=== PATIENT | female | born 1945 | race Caucasian/White ===

== ENCOUNTER 2019-11-07 08:06 | Outpatient (CLI) | payer MEDICARE, SELFPAY ==
--- NOTE | 2019-11-20 06:21 | SLEEP_ITS ---
DATE OF STUDY: 11/07/2019 ORDERING PHYSICIAN: Santo Patel M.D. REASON FOR THIS STUDY: Prior basic sleep study on September 25, 2019 with moderate JHON, with an AHI of 16, worse in supine sleep. HISTORY: This patient is a 74-year-old female, 59 inches tall, weighing 184 pounds with a body mass index of 37.2. On a prior study, September 25, 2019, her apnea-hypopnea index was 16, severe in non-supine REM with an index of 51.1 and a minimum saturation of 69%. She did have significant central apneas and therefore presents for a CPAP titration. MEDICAL COMORBIDITIES: Gastroesophageal reflux disease, hypertension, diabetes mellitus, nasal allergies, anemia, arthritis, chronic kidney disease stage 4, hearing loss, lumbar spine spondylosis. MEDICATIONS: 1. Tresiba 30 units insulin daily. 2. Omeprazole 20 mg a day. 3. Loratadine 10 mg a day. 4. Amlodipine 5 mg a day. 5. Carvedilol 12.5 mg b.i.d. 6. Hydralazine 25 mg t.i.d. 7. Folic acid with vitamins B and C complex daily. 8. Vascepa 1 g daily. HABITS: Tobacco, quit 2004. Caffeine, 2 cups a day. No alcohol or recreational drugs. DESCRIPTION OF THE STUDY: On the [place] Sleepiness Scale, her prior score was 5. This was conducted as an in-lab attended study using the [employer] multiple channel system including EOG, EEG, submental EMG, EKG, nasal and oral airflow using thermistors and nasal pressure sensors, chest and abdominal belts, body position data and pulse oximetry. This study was scored using CMS guidelines. Duration of the study was 490.3 minutes. Sleep time was 315.3 minutes. Sleep efficiency 64.3%. Sleep latency 20.9 minutes. REM latency 142.5 minutes. There were 19 awakenings, 32.8% of the study was awake after sleep onset, 154 minutes. Sleep architecture showed 4.2% stage 1 sleep, 48.9% stage 2 sleep, no stage 3 sleep and 14.2% stage REM. She spent 12.1% of the study supine. The remainder was non-supine. She had 2 REM cycles during the study with a long episode of wakefulness in the last third of the night. The apnea-hypopnea index was 1.9 due to 2 obstructive hypopneas in non-supine REM, 1 obstructive hypopnea in supine non-REM and 6 obstructive hypopneas in non-supine non-REM. The supine index was 1.2. Non-supine index 2.1. Lowest desaturation was 87%. 0.1 minute was spent below 88%. Mean saturation was 92%. There were 11 desaturations of 4% or greater for an index of 1.3. Mean saturation was 92%. EKG: Sinus rhythm mean heart rate 72. EEG was unremarkable. During this titration, the patient started with a nasal pillow, but her head was very petite for the head gear and a good fit was not maintained. She switched to a small WISP nasal mask. CPAP was started at 5 cm and titrated up to 10 cm with 3 of EPR using a small WISP nasal mask. She did have 34-1/2 minutes of REM, 1 hour 12 minutes of non-REM, an AHI of 0.6 and a minimum saturation of 89% at that setting. However, sleep efficiency was low at 10.3%. IMPRESSION: 1. This CPAP titration shows an optimal pressure of 10 cm of water pressure using a small WISP nasal mask heated humidifier and a pressure of 10 with 3 of EPR. Although the sleep efficiency was not very high, 10 cm water pressure did eliminate events. At this pressure, the patient had lateral REM. No supine REM was seen on this study. She had elimination of limb movements on this study. On the initial study, she had significant myoclonus with an isolated limb movement index of 18.4, now is 0. She should use this with all episodes of sleep including naps; fortunately central events were not noted on this study and they were present on the initial study. 2. Elevated body mass index 32.5. The patient should be encouraged to strive to achieve ideal body mass index. 3. Other medical
== END 2019-11-07 08:07 | disposition home or self-care (01) ==
LOC: ANHCSM 08:07
PROVIDERS: PCP Internal Medicine; Visit Provider Internal Medicine
DX: G47.33 Obstructive sleep apnea (adult) (pediatric) (principal)
CPT/HCPCS: 95811

== ENCOUNTER 2021-02-13 07:42 | Emergency (ER) | payer MEDICARE, SELFPAY ==
[2021-02-13] VITALS (24 sets, daily range): BP systolic 142–191; BP diastolic 57–94; PULSE 65–84; RESP 8–20; TEMP 36.6; O2SAT 94–99
--- NOTE | ~2021-02-13 | CT_ITS ---
EXAMINATION: CT lumbar spine wo con DATE: 02/13/2021 08:57 INDICATION: Chronic back pain. TECHNIQUE: Computed tomography (CT) of the lumbar spine was performed without intravenous contrast. A utomated exposure control and iterative reconstruction technique were employed. The dose-length produ ct was 1077.22 mGy-cm. COMPARISON: CT lumbar spine 04/07/2019 FINDINGS: There is chronic mild atrophy of left kidney. The bladder is distended. There is 4 mm anter olisthesis of L4 on L5. Vertebral body heights are normal. There is moderately decreased disc height at L3-L4 and L5-S1 and mildly decreased disc height at L4-L5 with endplate remodeling. There is Baast rup disease at L2-L3 and L3-L4. The following disc levels are specifically discussed: L1-L2: The disc does not extend beyond the endplate margin. There is moderate right and severe left f acet joint osteoarthritis. There is no neural foraminal stenosis. There is no central canal stenosis. L2-L3: The disc does not extend beyond the endplate margin. There is severe bilateral facet joint ost eoarthritis. There is no neural foraminal stenosis. There is no central canal stenosis. L3-L4: The disc is bulging. There is severe bilateral facet joint osteoarthritis. There is mild bilat eral neural foraminal stenosis. There is mild central canal stenosis. L4-L5: The disc is bulging. There is severe bilateral facet joint osteoarthritis. There is moderate b ilateral neural foraminal stenosis. There is severe central canal stenosis. L5-S1: The disc is bulging. There is severe bilateral facet joint osteoarthritis. There is severe jorge ateral neural foraminal stenosis. There is severe central canal stenosis. IMPRESSION: 1. Severe lumbar spondylosis, stable from 04/07/2019. Reviewed, dictated and finalized at location A.
--- NOTE | 2021-02-13 08:34 | ED.BACK ---
HPI - Back Pain/Injury General Chief Complaint: Back Pain/Injury Stated Complaint: back pain/htn Time Seen by Provider: 02/13/21 08:16 Source: patient, EMS and RN notes reviewed Mode of arrival: EMS Limitations: no limitations History of Present Illness HPI Narrative: Patient 75 years old white female brought to the emergency room by ambulance from home complaining of mid lower back pain started 3 weeks ago, gradually getting worse, intermittent, positional, better when she sit in upright position, history of chronic back pain for years secondary to bulging disks. Patient on Tylenol as needed. Patient also complaining of tingling numbness from head to toes. History of diabetic peripheral neuropathy. Patient denies any focal weakness. patient denies bowel dysfunction, bladder dysfunction, altered sensation, focal weakness, or saddle numbness,. Patient also denies any fever, chills, nausea, vomiting, diarrhea, constipation, urinary symptoms. History of chronic renal failure, diabetes, hypertension, chronic back pain. Related Data Home Medications Medication Instructions Recorded Confirmed cranberry extract 500 mg capsule 500 mg PO TID 09/23/20 02/13/21 sennosides 8.6 mg tablet 8.6 mg PO DAILY 09/23/20 02/13/21 vitamin B complex 1 tablet PO DAILY 09/23/20 02/13/21 Allergies Allergy/AdvReac Type Severity Reaction Status Date / Time Tetracyclines Allergy Mild hives Verified 02/13/21 07:47 ciprofloxacin Allergy Unknown Unknown Verified 02/13/21 07:47 Penicillins Allergy Unknown Rash Verified 02/13/21 07:47 shellfish derived Allergy Unknown Unknown Verified 02/13/21 07:47 Sulfa (Sulfonamide Allergy Unknown Nausea And Verified 02/13/21 07:47 Antibiotics) Vomiting tetracycline Allergy Unknown Rash Verified 02/13/21 07:47 Review of Systems Review of Systems: Narrative: CONSTITUTIONAL: Denies fever, chills, or sweats. EYES: Denies visual changes, redness, or discharge. ENT: Denies rhinorrhea, congestion, sore throat, or otalgia. CARDIOVASCULAR: Denies chest pain, palpitations, or edema. RESPIRATORY: Denies cough or dyspnea. GASTROINTESTINAL: Denies abdominal pain, nausea, vomiting, or diarrhea. GENITOURINARY: Denies dysuria or hematuria. SKIN: Denies rash or itching. MUSCULOSKELETAL: Back pain NEUROLOGIC: Denies headache, numbness, or weakness. PSYCHIATRIC: Denies anxiety or depression. 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 JHON on CPAP Proteinuria Vitamin B1 deficiency Vitamin B12 deficiency Family History Family History Father Diabetes mellitus Mother Diabetes mellitus Depression Hypertension Asthma Family history of cardiovascular disease Family history of malignant neoplasm Family history of congestive heart failure Sibling Diabetes mellitus Family history of malignant neoplasm Family history of hearing loss Social History Social History Smoking status: Never smoker Exam Narrative: Exam Narrative: General appearance: Well-developed, well-nourished Skin: Normal color Head: Normocephalic, nontraumatic Eyes: Clear conjunctiva ENT: Oropharynx normal, ears normal, nose normal Neck: Supple, nontender Chest and respiratory: Airway patent, no respiratory distress, no accessory muscle use Heart: Regular rate/rhythm Abdomen: Soft, nontender, no organomegaly, quiet bowel sounds Vascular: Normal peripheral pulses, normal capillary refill. Musculoskeletal: Normal range of motion, nontender back Neurologic:
[2021-02-13] MEDS: HYDROmorphone HCL INJ (*CRX) 1 MG/ML SYR 0.5 MG IV PUSH (08:40)
[2021-02-13] MEDS: diazePAM INJ (*CRX) 10 MG/2 ML SYRINGE 5 MG IV PUSH (08:41)
[2021-02-13] MEDS: ONDANSETRON INJ 4 MG/2 ML VIAL IV PUSH (08:42)
[2021-02-13 08:49] LABS: Basophils Absolute Auto 0.1 K/mm3 (0.0-0.1); Basophils Percent Auto 0.5 % (0.2-1.2); Eosinophils Absolute Auto 0.2 K/mm3 (0-0.3); Hematocrit 29.9 % (37.0-47.0); Hemoglobin 9.2 g/dL (12.0-15.0); Immature Granulocyte Absolute 0.04 K/mm3 (0.00-0.031); Immature Granulocyte Percent A 0.4 % (0-0.5); Lymphocytes Absolute Auto 1.34 K/mm3 (0.9-3.2); Lymphocytes Percent Auto 12.8 % (18.3-44.2); Mean Corpuscular HGB Conc 30.8 g/dl (32-36); Mean Corpuscular Hemoglobin 25.7 pg (26-34); Mean Corpuscular Volume 83.5 fl (80-100); Mean Platelet Volume 9.1 fl (7.4-10.4); Monocytes Absolute Auto 0.6 K/mm3 (0.1-0.6); Monocytes Percent Auto 5.5 % (2.6-8.5); Neutrophils Absolute Auto 8.2 K/mm3 (1.3-6.7); Neutrophils Percent Auto 78.8 % (45.5-73.1); Platelet Count Result 281 k/mm3 (150-375); Red Blood Count 3.58 M/mm3 (4.2-5.4); Red Cell Distribution Width 16.3 % (11.5-14.5); White Blood Count 10.5 K/mm3 (4.5-10.0)
[2021-02-13 09:00] LABS: Alanine Aminotransferase 13 U/L (4-35); Albumin Level 4.1 g/dL (3.5-5.1); Alkaline Phosphatase 86 U/L (38-126); Anion Gap 10 mmol/L (8-16); Aspartate Amino Transferase 25 U/L (14-36); Bilirubin,Total 0.3 mg/dL (0.2-1.3); Blood Urea Nitrogen 56 mg/dL (7-17); Calcium 9.5 mg/dL (8.4-10.2); Carbon Dioxide 21 mmol/L (22-30); Chloride 112 mmol/L (98-107); Estimated Glomerular Filt Rate 11; Glucose 116 mg/dL (65-105); Potassium 4.4 mmol/L (3.4-5.0); Sodium 143 mmol/L (137-145)
[2021-02-13 09:03] LABS: CRP 0.7 mg/dL (<1.0)
[2021-02-13 09:29] LABS: Erythrocyte Sedimentation Rate 28 mm/hr (0-20)
== END 2021-02-13 12:21 | disposition home or self-care (01) ==
PROVIDERS: Emergency Provider Emergency Medicine; PCP Internal Medicine
DX: M54.5 Low back pain (principal); E11.42 Type 2 diabetes mellitus with diabetic polyneuropathy; E11.22 Type 2 diabetes mellitus with diabetic chronic kidney disease; I12.9 Hypertensive chronic kidney disease with stage 1 through stage 4 chronic kidney disease, or unspecified chronic kidney disease; N18.4 Chronic kidney disease, stage 4 (severe); Z79.4 Long term (current) use of insulin; G47.33 Obstructive sleep apnea (adult) (pediatric); E51.9 Thiamine deficiency, unspecified; E53.8 Deficiency of other specified B group vitamins; M47.816 Spondylosis without myelopathy or radiculopathy, lumbar region
CPT/HCPCS: 36415; 72131; 80053; 85025; 85652; 86140; 96374; 96375; 99284; J1170; J2405; J3360

== ENCOUNTER 2021-03-08 09:16 | Outpatient (NON) | payer MEDICARE, SELFPAY ==
[2021-03-08 09:58] LABS: Anion Gap 11 mmol/L (8-16); Blood Urea Nitrogen 42 mg/dL (7-17); Calcium 9.7 mg/dL (8.4-10.2); Carbon Dioxide 21 mmol/L (22-30); Chloride 110 mmol/L (98-107); Cholesterol 160 mg/dL (0-200); Estimated Glomerular Filt Rate 10; Glucose 63 mg/dL (65-105); HDL Direct 50 mg/dL; LDL Cholesterol Direct 63 mg/dL; Sodium 142 mmol/L (137-145); Triglycerides 120 mg/dL (<150)
[2021-03-08 10:12] LABS: Hemoglobin A1C 5.6 % (<5.7)
== END 2021-03-08 09:17 | disposition home or self-care (01) ==
PROVIDERS: PCP Internal Medicine; Visit Provider Internal Medicine
DX: E11.9 Type 2 diabetes mellitus without complications (principal); I10 Essential (primary) hypertension; Z79.899 Other long term (current) drug therapy
CPT/HCPCS: 80048; 80061; 83036

== ENCOUNTER 2021-05-11 04:17 | Emergency (ER) | payer MEDICARE, SELFPAY ==
--- NOTE | ~2021-05-11 | XR_ITS ---
EXAMINATION: XR ankle LT min 3V EXAM DATE: 05/11/2021 05:16 INDICATION: Fell today, left ankle pain. TECHNIQUE: Left ankle frontal, lateral and oblique projections obtained and reviewed. There is no pr ior study for comparison. FINDINGS: The left ankle mortise appears intact. There are no acute fractures or dislocations ident ified. There is no subcutaneous gas. There may be an ankle joint effusion. There are no radiopaque foreign bodies. Moderate-sized posterior, small inferior calcaneal spurs. IMPRESSION: No acute osseous findings. Possible ankle joint effusion. Reviewed, dictated and finalized at location A.
--- NOTE | ~2021-05-11 | XR_ITS ---
EXAMINATION: XR hip LT 2V w AP pelvis EXAM DATE: 05/11/2021 05:16 INDICATION: Left leg pain. Fell. TECHNIQUE: Left hip frontal, 'frog leg' projections for interpretation. Frontal projection pelvis. There is no prior study for comparison. FINDINGS: Smooth left hip femoral head contour, no radiographic evidence of avascular necrosis. Ther e are no acute pelvic or left hip fractures or dislocations identified. There is no subcutaneous gas . The soft tissue is unremarkable. There are no radiopaque foreign bodies. IMPRESSION: No acute osseous findings. Reviewed, dictated and finalized at location A. IMPRESSION: No acute osseous findings.
[2021-05-11 04:21] VITALS: BP 162/53; PULSE 70; RESP 18; TEMP 36.9; O2SAT 95
--- NOTE | 2021-05-11 04:50 | ED.LOWEXIN ---
HPI - Extremity Injury (Lower) General Chief Complaint: Fall Stated Complaint: ankle and hip pain Time Seen by Provider: 05/11/21 04:31 Source: patient Mode of arrival: EMS Limitations: no limitations History of Present Illness HPI Narrative: Patient is a 75-year-old female complaining of left hip and left ankle pain, moderate, after she slid out of bed landing on her left side. Patient states that she has neuropathy showing a lot of. Denies any head, neck, back, chest or any other extremity pain/injury. Patient states that she is nonambulatory and usually gets around by pivoting and transfer to her chair and bed Related Data Home Medications Medication Instructions Recorded Confirmed cranberry extract 500 mg capsule 500 mg PO TID 09/23/20 03/23/21 sennosides 8.6 mg tablet 8.6 mg PO DAILY 09/23/20 03/23/21 vitamin B complex 1 tablet PO DAILY 09/23/20 03/23/21 Allergies Allergy/AdvReac Type Severity Reaction Status Date / Time Tetracyclines Allergy Mild hives Verified 03/23/21 11:51 ciprofloxacin Allergy Unknown Unknown Verified 03/23/21 11:51 Penicillins Allergy Unknown Rash Verified 03/23/21 11:51 shellfish derived Allergy Unknown Unknown Verified 03/23/21 11:51 Sulfa (Sulfonamide Allergy Unknown Nausea And Verified 03/23/21 11:51 Antibiotics) Vomiting tetracycline Allergy Unknown Rash Verified 03/23/21 11:51 Lysol Allergy Unknown Uncoded 05/10/21 14:25 Review of Systems Review of Systems: All systems reviewed & are unremarkable except as noted in HPI and below Constitutional: Constitutional: Denies body ache(s), Denies chills, Denies excessive sweating, Denies fatigue, Denies fever(s), Denies headache(s), Denies lethargy, Denies malaise, Denies weakness and Denies weight loss Eyes: Eyes: Denies blurry vision, Denies change in vision and Denies loss of vision ENT: Denies dizziness, Denies ear discharge, Denies headache(s), Denies lip swelling, Denies epistaxis, Denies nasal congestion, Denies neck pain, Denies throat swelling and Denies tongue swelling Cardiovascular: Cardiovascular: Denies chest pain, Denies chest pain at rest, Denies chest pain with activity, Denies diaphoresis, Denies rapid heart rate, Denies edema, Denies irregular heart rhythm, Denies lightheadedness, Denies palpitations, Denies dyspnea and Denies dyspnea on exertion Respiratory: Respiratory: Denies chest congestion, Denies cough, Denies hemoptysis, Denies dyspnea and Denies dyspnea on exertion Gastrointestinal: Gastrointestinal: Denies abdominal pain, Denies melena, Denies hematochezia, Denies diarrhea, Denies nausea, Denies vomiting and Denies hematemesis Neurologic: Denies Abnormal speech present, Denies abnormal gait, Denies confusion, Denies dizziness, Denies headache(s), Denies focal weakness, Denies loss of vision, Denies numbness, Denies Other visual disturbances, Denies Sensory deficit (Neuro) and Denies weakness Psychiatric: Psychiatric: Denies confusion, Denies depression, Denies auditory hallucinations, Denies homicidal ideation and Denies suicidal ideation Endocrine: Endocrine: Denies cold intolerance, Denies excessive sweating, Denies fatigue, Denies heat intolerance and Denies palpitations Hematologic/Lymphatic: Hematologic/Lymphatic: Denies easy bleeding and Denies easy bruising Allergic/Immunologic: Allergic/Immunologic: Denies lip swelling, Denies throat swelling and Denies tongue swelling PMFSH Past Medical History Medical History BMI 35.0-35.9,adult BMI 36.0-36.9,adult Chronic nausea CKD (chronic kidney disease), stage IV Constipation Decreased mobility Depression Diabetes mellitus type 2, insulin dependent DJD (degenerative joint disease) Encounter for Medicare annual wellness exam Encounter for routine adult health examination without abnormal findings Hearing loss Hypersomnolence Hypertension Impaired functional mobility, balance, gait, and endurance Lumbar spon
[2021-05-11] MEDS: HYDROcodone/acetaminophen (*CRX) 5-325 MG TABLET 1 TAB PO (05:27)
[2021-05-11 06:12] VITALS: BP 147/55; PULSE 78; RESP 18; O2SAT 95
[2021-05-11] MEDS: HYDROmorphone HCL INJ (*CRX) 1 MG/ML SYR IM (06:32)
--- NOTE | 2021-05-11 07:37 | PC.NURSE ---
blood glucose was 92 at 07:36
[2021-05-11 07:38] LABS: Glucose Point of Care 92 mg/dl (65-105)
[2021-05-11] MEDS: ONDANSETRON HCL ODT 4 MG TABLET PO (08:11)
[2021-05-11 10:40] VITALS: BP 160/67; PULSE 70; RESP 14; O2SAT 98
--- NOTE | 2021-05-11 11:25 | PCCCNOTE ---
Pt in ED d/t weakness. Home PT already set up, but will not start until May 18. Pt weak and immobile. Attempt to place for SNF. Information sent to [facility] and [facility].
--- NOTE | 2021-05-11 12:58 | PCCCNOTE ---
Pt accepted at [facility]&
[2021-05-11 13:34] LABS: EDCOVIDSCREEN Negative (Negative)
[2021-05-11 14:03] VITALS: BP 139/46; PULSE 83; RESP 18; O2SAT 97
[2021-05-11 15:24] VITALS: BP 146/68; PULSE 77; RESP 16; O2SAT 95
== END 2021-05-11 16:01 ==
PROVIDERS: Emergency Medicine; Emergency Provider Emergency Medicine; PCP Internal Medicine
DX: S82.892A Other fracture of left lower leg, initial encounter for closed fracture (principal); S70.02XA Contusion of left hip, initial encounter; I12.9 Hypertensive chronic kidney disease with stage 1 through stage 4 chronic kidney disease, or unspecified chronic kidney disease; E11.22 Type 2 diabetes mellitus with diabetic chronic kidney disease; N18.4 Chronic kidney disease, stage 4 (severe); Z79.4 Long term (current) use of insulin; F32.9 Major depressive disorder, single episode, unspecified; W06.XXXA Fall from bed, initial encounter; Z20.822 Contact with and (suspected) exposure to COVID-19
CPT/HCPCS: 36415; 73502; 73610; 82948; 87426; 96372; 99284; A9270; C9803; J1170

== ENCOUNTER 2021-05-19 21:33 | Emergency (ER) | payer MEDICARE, SELFPAY ==
[2021-05-19] VITALS (17 sets, daily range): BP systolic 137–156; BP diastolic 45–62; PULSE 64–70; RESP 12–24; TEMP 36.4; O2SAT 84–100
--- NOTE | ~2021-05-19 | XR_ITS ---
EXAMINATION: XR chest 1V portable DATE: 05/19/2021 23:36 INDICATION: Weakness. Fever. TECHNIQUE: A single frontal view of the chest was obtained. COMPARISON: None. FINDINGS: Calcified bilateral lung nodules and calcified hilar lymph nodes are consistent with old gr anulomatous disease. No pleural effusion or pneumothorax. The heart size is normal. There is a promin ent left paracardial fat pad. Surgical clips in the right upper quadrant are likely from cholecystect david. IMPRESSION: 1. No acute cardiopulmonary disease. Reviewed, dictated and finalized at location A.
--- NOTE | ~2021-05-19 | CT_ITS ---
EXAMINATION: CT abdomen pelvis wo con DATE: 05/20/2021 03:29 INDICATION: Urinary retention TECHNIQUE: Computed tomography (CT) of the abdomen and pelvis was performed without intravenous contr ast. The dose-length product (DLP) was 1137.10 mGy-cm. Automated exposure control and iterative recon struction technique were employed. COMPARISON: None FINDINGS: There are multiple calcified nodules of the visualized lung bases, consistent with old gran ulomatous disease. A few noncalcified nodules are present which measure up to 6 mm. Cardiomegaly is n oted. Punctate calcifications in an otherwise normal spleen likely represent healed granulomatous dis ease. The gallbladder is surgically absent. The liver, pancreas, and adrenal glands are normal. There is moderate atrophy of the right kidney and severe atrophy of the left kidney. A 2 mm nonobstructing stone is present in the lower pole of the right kidney. Cysts of the left kidney measure up to 9 mm. The urinary bladder is not distended. No pathologically enlarged abdominal or pelvic lymph nodes are identified. There is no free intraperitoneal gas or evidence of bowel obstruction. The appendix is n ormal. There is calcified atherosclerosis of the aorta and many of the other arteries. There is a lef t inguinal hernia containing fat. There is severe lumbar spondylosis. There is moderate osteoarthriti s of the hips. Muscular atrophy is noted in the pelvis. IMPRESSION: 1. No CT correlate for the patient's symptoms. 2. Bilateral renal atrophy. 3. Noncalcified nodules of the visualized lung bases measuring up to 6 mm. Follow-up CT in 3-6 months is recommended. Reviewed, dictated and finalized at location A. IMPRESSION: 1. No CT correlate for the patient's symptoms. 2. Bilateral renal atrophy. 3. Noncalcified nodules of the visualized lung bases measuring up to 6 mm. Foll ow-up CT in 3-6 months is recommended.
--- NOTE | 2021-05-19 21:53 | ECG_ITS ---
Measurements Intervals [place] Rate: 67 P: 47 MD: 133 QRS: 18 QRSD: 89 T: 70 QT: 424 QTc: 448 Interpretive Statements SINUS RHYTHM NONSPECIFIC ST & T-WAVE ABNORMALITY- ANTEROLAT/HIGH LAT LEADS BASELINE ARTIFACT- I, II, III, AVR, AVL, AVF, V1, V3-V6 BORDERLINE ECG Electronically Signed On 05-20-2021 5:46:34 CDT by William Wagner D.O.
--- NOTE | 2021-05-19 21:56 | ED.WEAKNESS ---
HPI - Weakness General Chief complaint: Weakness Stated complaint: doesnt feel good, hot and sweaty Time Seen by Provider: 05/19/21 21:47 History of Present Illness HPI Narrative: Patient presents with not feeling well. She first did not feeling well over the past few days explaining progressively worse so she came to the ER for evaluation. Reports body aches mild cough and fevers. She also reporting decrease in appetite. Reports she has had a history of sepsis is concerned she might be in sepsis again. Short she has had a decrease in urine output which her bowel movements have become less frequent she denies any focal areas of pain she denies any shortness of breath Related Data Home Medications Medication Instructions Recorded Confirmed cranberry extract 500 mg capsule 500 mg PO TID 09/23/20 03/23/21 sennosides 8.6 mg tablet 8.6 mg PO DAILY 09/23/20 03/23/21 vitamin B complex 1 tablet PO DAILY 09/23/20 03/23/21 Allergies Allergy/AdvReac Type Severity Reaction Status Date / Time Tetracyclines Allergy Mild hives Verified 03/23/21 11:51 ciprofloxacin Allergy Unknown Unknown Verified 03/23/21 11:51 Penicillins Allergy Unknown Rash Verified 03/23/21 11:51 shellfish derived Allergy Unknown Unknown Verified 03/23/21 11:51 Sulfa (Sulfonamide Allergy Unknown Nausea And Verified 03/23/21 11:51 Antibiotics) Vomiting tetracycline Allergy Unknown Rash Verified 03/23/21 11:51 Lysol Allergy Unknown Uncoded 05/10/21 14:25 Review of Systems Review of Systems: CONSTITUTIONAL: Denies fever, chills, or sweats. EYES: Denies visual changes, redness, or discharge. ENT: Denies rhinorrhea, congestion, sore throat, or otalgia. CARDIOVASCULAR: Denies chest pain, palpitations, or edema. RESPIRATORY: Denies dyspnea. GASTROINTESTINAL: Denies abdominal pain, nausea, vomiting, or diarrhea. GENITOURINARY: Denies dysuria or hematuria. SKIN: Denies rash or itching. MUSCULOSKELETAL: Denies back pain, joint pain. NEUROLOGIC: Denies headache, numbness, dizziness. PSYCHIATRIC: Denies anxiety or depression. 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 JHON on CPAP Positional vertigo Proteinuria Vitamin B1 deficiency Vitamin B12 deficiency Family History Family History Father Diabetes mellitus Mother Diabetes mellitus Depression Hypertension Asthma Family history of cardiovascular disease Family history of malignant neoplasm Family history of congestive heart failure Sibling Diabetes mellitus Family history of malignant neoplasm Family history of hearing loss Social History Social History Smoking status: Never smoker Gender identity (if verbalized by the patient): Female Exam Narrative: GENERAL: Well-appearing, well-nourished, and in no acute distress. HEAD: Normocephalic, atraumatic. EYES: PERRLA and EOMI. ENT: Nares clear, no rhinorrhea or epistaxis. Mucous membranes moist. NECK: Supple. No masses. No JVD CHEST: Clear to auscultation. No respiratory distress. No wheezes rales or rhonchi HEART: Regular rate and rhythm. No murmur heard. Normal peripheral pulses. ABDOMEN: Soft, nontender, nondistended, normal active bowel sounds. EXTREMITIES: Normal range of motion. SKIN: Warm, dry, no rash. NEURO: No focal deficits. Alert and oriented x3. PSYCH: Normal mood and affect. Cour
[2021-05-19] MEDS: SODIUM CHLORIDE 0.9% IV 1,000 ML 999 ML IV CONT (22:09)
[2021-05-19] MEDS: fentaNYL CITRATE INJ (*CRX) 100 MCG/2 ML VIAL 50 MCG IV PUSH (22:10)
[2021-05-19 22:27] LABS: Basophils Percent Auto 0.4 % (0.2-1.2); Eosinophils Absolute Auto 0.2 K/mm3 (0-0.3); Hematocrit 27.7 % (37.0-47.0); Hemoglobin 8.3 g/dL (12.0-15.0); Immature Granulocyte Absolute 0.04 K/mm3 (0.00-0.031); Immature Granulocyte Percent A 0.5 % (0-0.5); Lymphocytes Absolute Auto 1.32 K/mm3 (0.9-3.2); Lymphocytes Percent Auto 15.6 % (18.3-44.2); Mean Corpuscular Hemoglobin 25.4 pg (26-34); Mean Corpuscular Volume 84.7 fl (80-100); Mean Platelet Volume 8.7 fl (7.4-10.4); Monocytes Absolute Auto 0.6 K/mm3 (0.1-0.6); Monocytes Percent Auto 7.2 % (2.6-8.5); Neutrophils Absolute Auto 6.3 K/mm3 (1.3-6.7); Neutrophils Percent Auto 74.3 % (45.5-73.1); Platelet Count Result 300 k/mm3 (150-375); Red Blood Count 3.27 M/mm3 (4.2-5.4); Red Cell Distribution Width 15.1 % (11.5-14.5); White Blood Count 8.5 K/mm3 (4.5-10.0)
[2021-05-19 22:36] LABS: Lactic Acid Reflex 0.8 mmol/L (0.7-2.1)
[2021-05-19 22:37] LABS: Alanine Aminotransferase 25 U/L (4-35); Albumin Level 3.6 g/dL (3.5-5.1); Alkaline Phosphatase 89 U/L (38-126); Anion Gap 8 mmol/L (8-16); Aspartate Amino Transferase 36 U/L (14-36); Bilirubin,Total 0.4 mg/dL (0.2-1.3); Blood Urea Nitrogen 54 mg/dL (7-17); Calcium 8.9 mg/dL (8.4-10.2); Carbon Dioxide 20 mmol/L (22-30); Chloride 107 mmol/L (98-107); Estimated Glomerular Filt Rate 12; Glucose 136 mg/dL (65-110); Lipase 177 U/L (23-300); Potassium 4.2 mmol/L (3.4-5.0); Sodium 135 mmol/L (137-145)
--- NOTE | 2021-05-19 23:52 | PC.NURSE ---
Attempted to cath pt x2, unsuccessful at this time.
[2021-05-20] VITALS (24 sets, daily range): BP systolic 113–146; BP diastolic 49–64; PULSE 62–88; RESP 14–21; O2SAT 98–100
[2021-05-20] MEDS: CYCLOBENZAPRINE HCL 10 MG TABLET PO (01:30)
[2021-05-20] MEDS: MORPHINE SULFATE (*CRX) 4 MG/ML INJ IV PUSH ×2 (02:14→04:35)
[2021-05-20 03:07] LABS: Add Urine Microscopic? YES; Appearance Urine Clear (Clear); Bilirubin Urine Negative (Negative); Blood Urine Negative (Negative); Color Urine Yellow (Yellow); Glucose Urine UA 1+ mg/dL (Negative); Ketones Urine Negative (Negative); Leukocyte Esterase Ur Negative LEU/UL (Negative); Mucus Urine Rare /lpf; Nitrate Urine Negative (Negative); Protein Urine 2+ mg/dL (Negative); RBC Urine 0-2 /hpf (0-2); Specific Grav Ur 1.012 (1.001-1.035); Squamous Epithelial Cell Urine Occasional /hpf (Few); Urobilinogen Urine Negative mg/dL (<2.0); WBC Urine 0-3 /hpf
--- NOTE | 2021-05-20 04:49 | PC.NURSE ---
made contact with [place] to transfer back to [facility]. jose [id number] (trip #[id number])
--- NOTE | 2021-05-20 05:15 | PC.NURSE ---
pritesh has made it and is aware that pt is going to [facility]
== END 2021-05-20 05:15 ==
PROVIDERS: Emergency Provider Emergency Medicine; PCP Internal Medicine
DX: M54.9 Dorsalgia, unspecified (principal); G89.29 Other chronic pain; E11.22 Type 2 diabetes mellitus with diabetic chronic kidney disease; I12.9 Hypertensive chronic kidney disease with stage 1 through stage 4 chronic kidney disease, or unspecified chronic kidney disease; N18.4 Chronic kidney disease, stage 4 (severe); F32.9 Major depressive disorder, single episode, unspecified; G47.33 Obstructive sleep apnea (adult) (pediatric); E51.9 Thiamine deficiency, unspecified; E53.8 Deficiency of other specified B group vitamins; R94.31 Abnormal electrocardiogram [ECG] [EKG]; R91.8 Other nonspecific abnormal finding of lung field; Z79.4 Long term (current) use of insulin
CPT/HCPCS: 36415; 51701; 71045; 74176; 80053; 81001; 83605; 83690; 85025; 93005; 96361; 96374; 96375; 96376; 99284; A9270; J0131; J2270; J3010; J7030

== ENCOUNTER 2021-07-01 11:30 | Outpatient (RCR) | payer OTHER, MEDICARE, SELFPAY ==
[2021-07-01] VITALS (10 sets, daily range): BP systolic 111–142; BP diastolic 46–68; PULSE 56–73; RESP 14–16; TEMP 35.6–36.1; O2SAT 92–94
[2021-07-01 12:54] LABS: Hematocrit 21.2 % (37.0-47.0)
[2021-07-01 12:56] LABS: Hemoglobin 6.2 g/dL (12.0-15.0)
--- NOTE | 2021-07-01 13:03 | PC.NURSE ---
Lab called with critical lab value -- Hgb 6.2. MD [place] aware. 2u PRBC ordered for this patient.
[2021-07-01] MEDS: FUROSEMIDE INJ 40 MG/4 ML VIAL 20 MG IV PUSH (17:45)
--- NOTE | 2021-07-01 18:35 | PC.NURSE ---
Received from [facility] via bed. Blood infusing in right forearm.
--- NOTE | 2021-07-01 18:43 | PC.NURSE ---
Patient transferred to [facility], report given to July FERNANDEZ, all belongings transferred with patient.
== END 2021-07-01 21:15 ==
LOC: ANHCPCTRAN 11:30
PROVIDERS: PCP Family Medicine; Visit Provider Family Medicine
DX: D64.9 Anemia, unspecified (principal)
CPT/HCPCS: 36415; 36430; 85014; 85018; 86850; 86900; 86901; 86920; 96374; J1940; P9016

== ENCOUNTER 2021-07-07 10:02 | Outpatient (CLI) | payer OTHER, MEDICARE, SELFPAY ==
--- NOTE | 2021-07-07 11:30 | NEURO_ITS ---
Impression: # Right ulnar neuropathy around the elbow. # Right Carpal Tunnel Syndrome (sensory). # Left hand normal. # Needle/EMG exam revealed neurogenic changes right thenar eminence. Nerve Conduction Studies Anti Sensory Summary Table Stim Site NR Peak (ms) P-T Amp (?V) Site1 Site2 Delta-P (ms) Dist (cm) Georges (m/s) Left Median Anti Sensory (2-3nd Digit) Wrist 3.3 16.5 Wrist 2-3nd Digit 3.3 14.0 42 Wrist 3.8 7.2 Wrist 2-3nd Digit 3.3 14.0 42 Right Median Anti Sensory (2-3nd Digit) Wrist 5.8 9.7 Wrist 2-3nd Digit 5.8 14.0 24 Wrist 5.6 5.3 Wrist 2-3nd Digit 5.8 14.0 24 Left Radial Anti Sensory (Base 1st Digit) Wrist 2.0 20.6 Wrist Base 1st Digit 2.0 0.0 Right Radial Anti Sensory (Base 1st Digit) Wrist 2.0 13.4 Wrist Base 1st Digit 2.0 0.0 Left Ulnar Anti Sensory (5th Digit) Wrist 2.6 34.2 Wrist 5th Digit 2.6 14.0 54 Right Ulnar Anti Sensory (5th Digit) Wrist 2.2 6.3 Wrist 5th Digit 2.2 14.0 64 Motor Summary Table Stim Site NR Onset (ms) O-P Amp (mV) Site1 Site2 Delta-0 (ms) Dist (cm) Georges (m/s) Left Median Motor (Abd Poll Brev) Wrist 3.4 1.3 Elbow Wrist 4.5 27.0 60 Elbow 7.9 0.8 Right Median Motor (Abd Poll Brev) Wrist 3.8 0.6 Elbow Wrist 6.7 26.0 39 Elbow 10.5 0.4 Left Ulnar Motor (Abd Dig Minimi) Wrist 2.3 5.5 A Elbow Wrist 4.5 27.0 60 A Elbow 6.8 3.9 Right Ulnar Motor (Abd Dig Minimi) Wrist 2.6 4.2 A Elbow Wrist 5.4 26.0 48 A Elbow 8.0 3.5 F Wave Studies NR F-Lat (ms) L-R F-Lat (ms) Left Median (Mrkrs) (Abd Poll Brev) 28.71 1.81 Right Median (Mrkrs) (Abd Poll Brev) 30.53 1.81 Left Ulnar (Mrkrs) (Abd Dig Min) 28.36 0.63 Right Ulnar (Mrkrs) (Abd Dig Min) 28.98 0.63 EMG Side Muscle Nerve Root Ins Act Fibs Amp Dur Recrt Comment Right 1stDorInt Ulnar C8-T1 Nml Nml Nml Nml Nml Right Ext Indicis Radial (Post Int) C7-8 Nml Nml Nml Nml Nml Right Ext Digitorum Radial (Post Int) C7-8 Nml Nml Nml Nml Nml Right BrachioRad Radial C5-6 Nml Nml Nml Nml Nml Right PronatorTeres Median C6-7 Nml Nml Nml Nml Nml Right Abd Poll Brev Median C8-T1 Nml Nml Nml >12ms Reduced Left 1stDorInt Ulnar C8-T1 Nml Nml Nml Nml Nml Left Ext Indicis Radial (Post Int) C7-8 Nml Nml Nml Nml Nml Left Ext Digitorum Radial (Post Int) C7-8 Nml Nml Nml Nml Nml Left BrachioRad Radial C5-6 Nml Nml Nml Nml Nml Left PronatorTeres Median C6-7 Nml Nml Nml Nml Nml Left Abd Poll Brev Median C8-T1 Nml Nml Nml Nml Nml Right Biceps Musculocut C5-6 Nml Nml Nml Nml Nml Right Triceps Radial C6-7-8 Nml Nml Nml Nml Nml Right Deltoid Axillary C5-6 Nml Nml Nml Nml Nml Left Biceps Musculocut C5-6 Nml Nml Nml Nml Nml Left Triceps Radial C6-7-8 Nml Nml Nml Nml Nml Left Deltoid Axillary C5-6 Nml Nml Nml Nml Nml MTDD
== END 2021-07-07 10:03 | disposition home or self-care (01) ==
PROVIDERS: PCP Family Medicine; Visit Provider Family Medicine
DX: R53.1 Weakness (principal); G56.01 Carpal tunnel syndrome, right upper limb; G56.21 Lesion of ulnar nerve, right upper limb
CPT/HCPCS: 95886; 95911

== ENCOUNTER 2021-07-13 14:44 | Inpatient (IN) | payer MEDICARE, SELFPAY ==
--- NOTE | ~2021-07-13 | US_ITS ---
EXAMINATION: US venous doppler [facility] DATE: 07/14/2021 10:45 INDICATION: Lower limb edema. TECHNIQUE: Grayscale ultrasound images without and with compression and Doppler ultrasound images of the bilateral lower extremity veins were obtained. COMPARISON: None. FINDINGS: The visualized portions of right common femoral vein, profunda (deep) femoral vein, femoral vein, pop liteal vein, peroneal veins, posterior tibial veins, and greater saphenous vein outflow are patent. The visualized portions of left common femoral vein, profunda femoral vein, femoral vein, popliteal v ein, peroneal veins, posterior tibial veins, and greater saphenous vein outflow are patent. IMPRESSION: 1. No deep venous thrombosis. Reviewed, dictated and finalized at location A.
--- NOTE | ~2021-07-13 | XR_ITS ---
EXAMINATION: XR chest 1V portable EXAM DATE: 07/13/2021 15:18 INDICATION: Increasing Weakness, numbness Legs, difficulty Swallowing. TECHNIQUE: Portable AP frontal chest x-ray was obtained. Comparison is made to prior examination from 05/19/2021. FINDINGS: There is cardiomegaly and pulmonary vascular congestion. There are probably layering pleura l effusions. There is moderate amount of ill-defined bibasilar edema or pneumonia, please clinically correlate. No pneumothorax. There is aortic arteriosclerosis. GEN IMPRESSION: 1. Moderate basilar opacity combination of layering pleural effusions and edema and/or pneumonia. 2. Cardiomegaly, pulmonary vascular congestion. Reviewed, dictated and finalized at location B. IMPRESSION: 1. Moderate basilar opacity combination of layering pleural effusions and rocco a and/or pneumonia. 2. Cardiomegaly, pulmonary vascular congestion.
--- NOTE | ~2021-07-13 | MR_ITS ---
EXAMINATION: MR brain/brain stem wo con DATE: 07/14/2021 11:28 INDICATION: Decreased mobility. Numbness of the lower extremities and right arm. TECHNIQUE: Magnetic resonance imaging (MRI) of the brain and brainstem was performed without intraven ous contrast. Sequences included sagittal and axial T1-weighted FSE, axial diffusion-weighted FS EPI, axial T2*-weighted GRE, axial T2-weighted FLAIR Propeller, and axial T2-weighted Propeller. Apparent diffusion coefficient (ADC) maps were created. COMPARISON: Head CT 07/13/2021 FINDINGS: There are scattered areas of nonspecific increased T2-weighted signal intensity in the cere bral white matter. There is no intracranial hemorrhage, acute infarction, or abnormal intracranial ma ss lesion. The ventricles are normal in size. There is mild mucosal thickening in the paranasal sinus es. There are likely changes of ocular lens replacement surgeries. There is a small right mastoid eff usion. IMPRESSION: 1. Mild nonspecific cerebral white matter disease, which likely represents chronic small vessel ische carmenza disease. Reviewed, dictated and finalized at location A. IMPRESSION: 1. Mild nonspecific cerebral white matter disease, which likely represents speck [place] small vessel ischemic disease.
--- NOTE | ~2021-07-13 | XR_ITS ---
EXAMINATION: XR abdomen/kub 1V INDICATION: Abdominal pain and distention TECHNIQUE: Supine views of the abdomen were obtained on 2 radiographs. COMPARISON: None FINDINGS: The bowel gas pattern is nonspecific. There is a moderate volume of colonic stool. Surgical clips in the right upper quadrant are likely from prior cholecystectomy. Calcified atherosclerosis i s noted. There is moderate osteoarthritis of the hips. IMPRESSION: 1. Nonspecific bowel gas pattern. Reviewed, dictated and finalized at location A.
--- NOTE | ~2021-07-13 | CT_ITS ---
EXAMINATION: CT soft tiss nk chst ab pel wo DATE: 07/14/2021 16:16 INDICATION: Sepsis. TECHNIQUE: Computed tomography (CT) of the neck, chest, abdomen, and pelvis was performed without int ravenous contrast. Automated exposure control and iterative reconstruction technique were employed. T he dose-length product was 1938.12 mGy-cm. COMPARISON: CT abdomen and pelvis 05/20/2021, kidney ultrasound 07/14/21 FINDINGS: NECK CT: There are nodules in the thyroid measuring up to 2.5 cm. There are no pathologically enlarged lymph n odes. CHEST CT: Calcified bilateral lung nodules and calcified hilar lymph nodes are consistent with old granulomatou s disease. There are moderate-sized pleural effusions bilaterally. There is atelectasis bilaterally w ith a dependent predominance. There is smooth septal thickening in the lungs, consistent with pulmona ry edema. There is a 6 mm nodule in right middle lobe. Cardiomegaly is noted. There are coronary juvenla ry calcifications. There is mild mediastinal lymphadenopathy. For example, a right paratracheal node measures 17 x 13 mm. There is thoracic kyphosis and dextrocurvature. There is a fracture of T11 verte bral body without height loss. There are bridging endplate osteophytes at multiple levels in the spin e, consistent with diffuse idiopathic skeletal hyperostosis (DISH). ABDOMEN/PELVIS CT: The liver is normal. There are changes of cholecystectomy. Calcifications in the spleen are consisten t with old granulomatous disease. There is a 14 mm cystic lesion in the uncinate process of the pancr eas. The adrenal glands are normal. There is mild atrophy of right kidney and moderate atrophy of lef t kidney. There is a 13 mm mass in left kidney measuring soft tissue attenuation correlating with a c yst by ultrasound. Stool distends the rectum. The appendix is normal. There are no pathologically enl arged lymph nodes. There is no free intraperitoneal fluid. Body wall edema is noted. There is a left inguinal hernia containing fat. There is severe lumbar spondylosis. There is lumbar levocurvature. IMPRESSION: 1. Moderate-sized bilateral pleural effusions. 2. Mild pulmonary edema. 3. Mild mediastinal lymphadenopathy, likely reactive. 4. T11 vertebral body fracture, new from 05/20/2021, likely subacute. 5. 14 mm cystic lesion of the pancreas. The differential diagnosis includes pseudocyst, intraductal p apillary mucinous neoplasm (IPMN), mucinous cystic neoplasm (MCN), serous cystadenoma, and neuroendoc rine tumor. Consider abdomen MRI without and with contrast in 2 years. 6. Multinodular goiter. Consider thyroid ultrasound for risk stratification. 7. 6 mm pulmonary nodule, probably benign. Consider noncontrast chest CT in 6 months. Reviewed, dictated and finalized at location A. IMPRESSION: 1. Moderate-sized bilateral pleural effusions. 2. Mild pulmonary edema. 3. Mild mediastinal lymphadenopathy, likely reactive. 4. T11 vertebral body fracture, new from 05/20/2021, likely subacute. 5. 14 mm cystic lesion of the pancreas. The differential diagnosis includes pse udocyst, intraductal papillary mucinous neoplasm (IPMN), mucinous cystic neopla sm (MCN), serous cystadenoma, and neuroendocrine tumor. Consider abdomen MRI wi thout and with contrast in 2 years. 6. Multinodular goiter. Consider thyroid ultrasound for risk stratification. 7. 6 mm pulmonary nodule, probably benign. Consider noncontrast chest CT in 6 m [facility].
--- NOTE | ~2021-07-13 | CT_ITS ---
EXAMINATION: CT brain wo con EXAM DATE: 07/13/2021 15:59 INDICATION: Numbness to legs. Can't stand. TECHNIQUE: Spiral CT of the head was performed without contrast. Axial, coronal and sagittal images were reviewed. The dose-length product (DLP) for this examination was 605.33 mGy-cm. The exposure w as tailored according to patient size, and iterative reconstruction (ASIR) was used as additional dos e reduction technique. There is no prior study for comparison. FINDINGS: There is no acute intraparenchymal hemorrhage. No evidence of intraparenchymal brain mass lesion. No evidence of acute infarction. Please note that initial head CT has limited sensitivity f or small or acute infarctions. Punctate old right basal ganglia lacunar infarction. There is mild p eriventricular and subcortical hypodensity, nonspecific but probably related to small vessel ischemic disease. [id number] There is intracranial carotid arteriosclerosis. There are no extra-axi al collections. There is no mass effect or midline shift. Patient has had bilateral ocular lens david sondra. Soft tissue is unremarkable. The visualized sinuses and mastoid air cells are well aerated. IMPRESSION: 1. No acute intracranial findings. 2. Chronic age related findings. Reviewed, dictated and finalized at location B.
--- NOTE | ~2021-07-13 | US_ITS ---
EXAMINATION: US renal BI EXAM DATE: 07/14/2021 14:12 INDICATION: CKD stage 5 TECHNIQUE: Multiple grayscale and Doppler images of the kidneys were obtained (by a technologist who performed the scan) and subsequently reviewed. There is no prior study for comparison. FINDINGS: Substantial bilateral renal cortical thinning. Right kidney: There is normal contour and increased echogenicity. It measures 8.9 x 4.5 x 4.0 centim eters. No focal lesions identified. There is no hydronephrosis. Left kidney: There is normal contour and increased echogenicity. It measures 8.6 x 3.0 x 3.5 centime ters. Small anechoic lesions with cysts. There is no hydronephrosis. Bladder unremarkable. IMPRESSION: 1. Echogenic liver disease, medical renal disease. 2. Moderate renal atrophy. Reviewed, dictated and finalized at location B.
[2021-07-13 14:45] VITALS: BP 105/47; PULSE 59; RESP 15; TEMP 36.4; O2SAT 99
--- NOTE | 2021-07-13 14:48 | ED.GENADULT ---
HPI - General Adult General Chief complaint: Weakness Stated complaint: INCREASED WEAKNESS Time Seen by Provider: 07/13/21 14:47 Source: patient and family (niece) Mode of arrival: EMS Limitations: no limitations History of Present Illness HPI narrative: Patient is here for evaluation of weakness. She states that she has become more short of breath, there was an x-ray taken at the residential facility that showed bilateral pneumonia per their report. She has worsening edema both in her abdomen and her lower extremities. She is currently on oxygen, eye deviation from baseline. She also reports decreased ability to swallow, liquids are still able, she is now having difficulty swallowing her pills. She has stage IV renal disease diagnosed 4 to 5 years ago at that time she had gone into hospice and declined dialysis. Onset (ago): day(s) Related Data Home Medications Medication Instructions Recorded Confirmed cranberry extract 500 mg capsule 500 mg PO TID 09/23/20 03/23/21 sennosides 8.6 mg tablet 8.6 mg PO DAILY 09/23/20 03/23/21 vitamin B complex 1 tablet PO DAILY 09/23/20 03/23/21 Allergies Allergy/AdvReac Type Severity Reaction Status Date / Time Tetracyclines Allergy Mild hives Verified 03/23/21 11:51 ciprofloxacin Allergy Unknown Unknown Verified 03/23/21 11:51 Penicillins Allergy Unknown Rash Verified 03/23/21 11:51 shellfish derived Allergy Unknown Unknown Verified 03/23/21 11:51 Sulfa (Sulfonamide Allergy Unknown Nausea And Verified 03/23/21 11:51 Antibiotics) Vomiting tetracycline Allergy Unknown Rash Verified 03/23/21 11:51 morphine Allergy Hives Verified 07/13/21 16:14 Lysol Allergy Unknown Dyspnea / Uncoded 07/13/21 16:14 SOB Review of Systems Review of Systems: All systems reviewed & are unremarkable except as noted in HPI and below PMFSH Past Medical History Medical History BMI 35.0-35.9,adult BMI 36.0-36.9,adult Chronic nausea CKD (chronic kidney disease), stage IV Constipation Decreased mobility Depression Diabetes mellitus type 2, insulin dependent DJD (degenerative joint disease) Encounter for Medicare annual wellness exam Encounter for routine adult health examination without abnormal findings Hearing loss Hypersomnolence Hypertension Impaired functional mobility, balance, gait, and endurance Lumbar spondylolysis On filler leaf cutter long drug therapy JHON on CPAP Positional vertigo Proteinuria Vitamin B1 deficiency Vitamin B12 deficiency Family History Family History Father Diabetes mellitus Mother Diabetes mellitus Depression Hypertension Asthma Family history of cardiovascular disease Family history of malignant neoplasm Family history of congestive heart failure Sibling Diabetes mellitus Family history of malignant neoplasm Family history of hearing loss Social History Social History Smoking status: Never smoker Gender identity (if verbalized by the patient): Female Exam Const: General: alert and ill appearing Nutritional Appearance: obese Orientation/consciousness: patient oriented x3 HENMT: Head: normal to inspection Mouth: Yes dry mucous membranes Throat: posterior oropharynx normal Eyes: Conjunctivae: conjunctivae normal Pupils: Equal, round and reactive pupils present Resp: Effort & Inspection: labored Auscultation: rales bilateral at the base Cardio: Rate: regular rate Rhythm: regular rhythm GI: Inspection: distended GI Palp: Yes Firmness to palpation present (GI) Percussion: Yes tympanic to percussion Auscultation: normal bowel sounds Skin: General skin exam: normal color Neuro: General: patient oriented x3 Extrem: General: edema bilateral (Lower ext.) Course Course Emergency Course: Spoke with regarding best way to diurese. He recommends Bumex, 2 mg now and
--- NOTE | 2021-07-13 15:07 | ECG_ITS ---
Measurements Intervals [place] Rate: 60 P: 44 TX: 139 QRS: 3 QRSD: 91 T: -51 QT: 429 QTc: 430 Interpretive Statements SINUS RHYTHM DELAYED PRECORDIAL R/S TRANSITION INFERIOR INFARCT, AGE INDETERMINATE T WAVE ABNORMALITY IN ANTEROLATERAL LEADS- CONSIDER ISCHEMIA BASELINE ARTIFACT- I, II, III, AVF, V3-V6 ABNORMAL ECG Electronically Signed On 07-13-2021 18:57:37 CDT by William Wagner D.O.
[2021-07-13 16:12] LABS: Basophils Percent Auto 0.3 % (0.2-1.2); Eosinophils Absolute Auto 0.2 K/mm3 (0-0.3); Eosinophils Percent Auto 2.9 % (0-4.4); Hematocrit 29.7 % (37.0-47.0); Hemoglobin 8.8 g/dL (12.0-15.0); Immature Granulocyte Absolute 0.02 K/mm3 (0.00-0.031); Immature Granulocyte Percent A 0.3 % (0-0.5); Lymphocytes Absolute Auto 0.92 K/mm3 (0.9-3.2); Lymphocytes Percent Auto 13.6 % (18.3-44.2); Mean Corpuscular HGB Conc 29.6 g/dl (32-36); Mean Corpuscular Hemoglobin 25.9 pg (26-34); Mean Corpuscular Volume 87.4 fl (80-100); Mean Platelet Volume 9.1 fl (7.4-10.4); Monocytes Absolute Auto 0.4 K/mm3 (0.1-0.6); Neutrophils Absolute Auto 5.2 K/mm3 (1.3-6.7); Neutrophils Percent Auto 76.9 % (45.5-73.1); Platelet Count Result 238 k/mm3 (150-375); Red Cell Distribution Width 17.2 % (11.5-14.5); White Blood Count 6.8 K/mm3 (4.5-10.0)
[2021-07-13] MEDS: SODIUM CHLORIDE 0.9% IV 500 ML 999 ML IV CONT (16:13)
[2021-07-13 16:47] LABS: Anisocytosis 2+ (NORMAL); Platelet Estimate Adequate (Adequate)
[2021-07-13 16:48] LABS: Hypochromasia 1+ (NORMAL)
[2021-07-13] MEDS: fentaNYL CITRATE INJ (*CRX) 100 MCG/2 ML VIAL 50 MCG IV PUSH (16:54)
[2021-07-13 17:05] LABS: NT Pro B Type Natriuretic Pept 28000 pg/mL (5-100); NT Pro B Type Natriuretic Pept 28600 pg/mL (5-100)
[2021-07-13 17:09] LABS: Alanine Aminotransferase 18 U/L (4-35); Albumin Level 3.3 g/dL (3.5-5.1); Alkaline Phosphatase 76 U/L (38-126); Anion Gap 8 mmol/L (8-16); Aspartate Amino Transferase 25 U/L (14-36); Bilirubin,Total 0.1 mg/dL (0.2-1.3); Blood Urea Nitrogen 68 mg/dL (7-17); Calcium 9.2 mg/dL (8.4-10.2); Carbon Dioxide 26 mmol/L (22-30); Chloride 105 mmol/L (98-107); Estimated Glomerular Filt Rate 11; Glucose 60 mg/dL (65-110); Potassium 4.3 mmol/L (3.4-5.0); Sodium 139 mmol/L (137-145)
[2021-07-13 17:46] LABS: Glucose Point of Care 67 mg/dl (65-105)
[2021-07-13] MEDS: BUMETANIDE INJ 1 MG/4 ML VIAL 2 MG IV PUSH (18:09)
[2021-07-13] MEDS: DEXTROSE 10% 1,000 ML 75 ML IV CONT (18:10)
[2021-07-13 18:17] VITALS: BP 112/53; PULSE 62; RESP 12; O2SAT 97
[2021-07-13 20:00] VITALS: BP 139/54; PULSE 67; RESP 20; TEMP 36; O2SAT 94
--- NOTE | 2021-07-13 20:59 | ADMGEN ---
This patient, Katerina Rees, was admitted to 2 Medical Room 242-. Patient/family oriented to hospital policies and general routines including ID bracelet, bed and alarms, visiting hours, pain management, procedures, bathroom and other care routines, personal items, smoking policy, room service/diet, and visiting hours. Information on how to activate the Rapid Response Team has been discussed. Patient/Family are encouraged to report perceived risks to care and to ask questions if they do not understand what they are told or what they should do.
[2021-07-13 21:45] VITALS: PULSE 68
[2021-07-13 22:00] VITALS: O2SAT 94
--- NOTE | 2021-07-13 23:18 | PM.IMHP ---
H&P: HPI History of Present Illness Date/Time: 07/13/21 23:18 this is a 75-year-old female patient who has end-stage renal disease and has refused dialysis for the last 4 years. The patient had been on hospice at one time and was taken off. The patient been more short of breath. The patient is currently in rehab at [facility]. The patient had been staying with her niece and nephew for quite some time. The patient has been complaining of numbness and tingling to her lower extremities this past January and February in the March she was unable to walk any further she also had numbness and tingling to her right arm and was told that she has a pinched nerve. The patient has been getting rehab for physical therapy and occupational therapy at the facility. The patient comes in today because she short of breath and is typically on oxygen at 3 L per nasal cannula. She is currently on oxygen at 3 L per nasal cannula. The patient also came in to be evaluated for her weakness. She stated that she is not able to pee and she has more edema to her abdomen and lower extremities. The patient has had stage IV renal disease for 4-5 years now. She has been declining dialysis. Nephrology has been consulted any recommended Bumex 2 mg at that time and then repeat again is 6 hours. The patient stated she felt somewhat better after fentanyl. Her glucose was 60 so she was started on D10 drip. She is also NPO at this time and would consider speech therapy evaluation for swallowing difficulties. Patient's H&H is currently 8.8 and 29.7. A Salazar catheter was placed when the patient came up to the medical floor she was complaining of not being able to urinate. Patient's GFR is 11. BUN 68 and creatinine 3.9. Patient [place] [address] was read as no acute intracranial findings. Chronic age-related findings. Chest x-ray was read as moderate basilar opacities combination of layering pleural effusions and edema and/or pneumonia. Cardiomegaly, pulmonary vascular congestion. The patient was started on a D10 drip, morphine, fentanyl, and Bumex 2 times. Nephrology was consulted. The patient is being admitted to observation status on the date of service of 07/13/2021. Chief Complaint: Shortness of breath Review of Systems Review of Systems: All systems reviewed & are unremarkable except as noted in HPI and below Constitutional: Constitutional: Reports as per HPI and Reports no additional constitutional complaints Eyes: Eyes: Reports as per HPI and Reports no additional eye complaints ENT: Reports system reviewed and no additional complaints, except as documented and Reports Normal hearing present Cardiovascular: Cardiovascular: Reports no additional cardiovascular complaints Respiratory: Respiratory: Reports no additional respiratory complaints and Reports no additional respiratory complaints Gastrointestinal: Gastrointestinal: Reports as per HPI and Reports no additional gastrointestinal complaints Musculoskeletal: Musculoskeletal: Reports no additional musculoskeletal complaints Integumentary/Breasts: Skin/Breast: Reports system reviewed and no additional complaints, except as docu and Reports as per HPI Neurologic: Reports system reviewed and no additional complaints, except as documented, Reports as per HPI and Reports Normal hearing present Psychiatric: Psychiatric: Reports no additional psychiatric complaints and Reports as per HPI Endocrine: Endocrine: Reports no additional endocrine complaints Hematologic/Lymphatic: Hematologic/Lymphatic: Reports no additional hematologic/lymphatic complaints Allergic/Immunologic: Allergic/Immunologic: Reports no additional allergic/immunologic complaints [facility] Past Medical History Medical History (Updated 07/13/21 @ 23:28 by Caryn Cowan NP) BMI 35.0-35.9,adult BMI 36.0-36.9,adult Chronic nausea CKD (chronic kidney disease), stage IV Constipation Decreased mobility Depression Diabe
[2021-07-13 23:31] VITALS: PULSE 67; O2SAT 93
[2021-07-13 23:56] LABS: Hemoglobin A1C 5.4 % (<5.7)
[2021-07-14] VITALS (27 sets, daily range): BP systolic 98–130; BP diastolic 42–52; PULSE 49–97; RESP 16–20; TEMP 34.2–37.2; O2SAT 90–97
[2021-07-14] MEDS: BUMETANIDE INJ 2.5 MG/10 ML VIAL 2 MG IV PUSH (00:41)
[2021-07-14 01:14] LABS: Glucose Point of Care 102 mg/dl (65-105)
[2021-07-14 01:14] LABS: Glucose Point of Care 99 mg/dl (65-105)
[2021-07-14 05:43] LABS: Alanine Aminotransferase 17 U/L (4-35); Albumin Level 2.9 g/dL (3.5-5.1); Alkaline Phosphatase 68 U/L (38-126); Anion Gap 8 mmol/L (8-16); Aspartate Amino Transferase 23 U/L (14-36); Bilirubin,Total 0.2 mg/dL (0.2-1.3); Blood Urea Nitrogen 64 mg/dL (7-17); Calcium 8.8 mg/dL (8.4-10.2); Carbon Dioxide 24 mmol/L (22-30); Chloride 105 mmol/L (98-107); Estimated Glomerular Filt Rate 11; Glucose 75 mg/dL (65-110); Lipase 241 U/L (23-300); Magnesium 2.3 mg/dL (1.6-2.3); Sodium 137 mmol/L (137-145)
[2021-07-14 07:55] LABS: Glucose Point of Care 74 mg/dl (65-105)
[2021-07-14] MEDS: BUMETANIDE INJ 1 MG/4 ML VIAL IV PUSH ×2 (08:36→19:20)
[2021-07-14] MEDS: DEXTROSE 10% 1,000 ML 50 ML IV CONT (08:39)
[2021-07-14] MEDS: ALBUTEROL SULFATE NEB 2.5 MG/3 ML INH INHALATION (08:44)
[2021-07-14] MEDS: ESCITALOPRAM OXALATE 5 MG TABLET PO (09:07)
[2021-07-14] MEDS: GABAPENTIN 100 MG CAPSULE PO (09:07)
[2021-07-14] MEDS: AZITHROMYCIN 250 MG TABLET PO (09:07)
[2021-07-14] MEDS: hydrALAZINE HCL 50 MG TABLET PO (09:07)
[2021-07-14] MEDS: LORATADINE 10 MG TABLET PO (09:07)
[2021-07-14] MEDS: amLODIPine BESYLATE 5 MG TABLET PO (09:07)
[2021-07-14] MEDS: carvediloL 25 MG TABLET PO (09:08)
[2021-07-14] MEDS: PANTOPRAZOLE 40 MG TABLET PO (09:08)
[2021-07-14] MEDS: FOLIC ACID 1 MG TABLET PO (09:08)
--- NOTE | 2021-07-14 09:24 | PCSTNOTE ---
Please refer to the Bedside Swallow Evaluation in the EMR. Please note, silent aspiration cannot be ruled out at bedside.
--- NOTE | 2021-07-14 09:25 | PC.NURSE ---
Medication administration observed by speech therapy. No problems noted on administration. See speech therapy note.
--- NOTE | 2021-07-14 09:45 | PM.CNNEP ---
Assessment and Plan Assessment and plan (1) CKD stage G5/A2, GFR <15 and albumin creatinine ratio 30- 299 mg/g: Code(s): N18.5 - Chronic kidney disease, stage 5 Status: Acute Assessment and Plan: The patient has chronic kidney disease. The creatinine has been ranging between 3.2 and 4.2 over the last 3 years. This gives her chronic kidney disease stage 5. She says she eats well. She does not have any nausea currently. She sleeps well. I do not think she has any [place] uremia. However typically in someone who has this slow progression of kidney disease they do not notice how bad they feel till the get on dialysis. The patient still is adamant that she does not want to live a life on dialysis so refuses to start. Her creatinine is a little higher in the range of where she runs so will check a renal ultrasound to be sure there is nothing reversible going on. (2) Fluid overload, unspecified: Code(s): E87.70 - Fluid overload, unspecified Status: Acute Assessment and Plan: She still looks volume overloaded. Creatinine did not change very much with diuresis. Will try another couple doses of Bumex. Will check an echocardiogram as well. (3) JHON on CPAP: Code(s): G47.33 - Obstructive sleep apnea (adult) (pediatric); Z99.89 - Dependence on other enabling machines and devices Status: Acute Assessment and Plan: She has sleep apnea and uses a CPAP machine (4) Hypertension: Qualifiers: Hypertension type: unspecified Qualified Code(s): I10 - Essential (primary) hypertension Code(s): I10 - Essential (primary) hypertension Status: Acute Assessment and Plan: Blood pressure is under good control. She is on amlodipine and hydralazine for this. (5) Diabetes mellitus type 2, insulin dependent: Code(s): E11.9 - Type 2 diabetes mellitus without complications; Z79.4 - salvage determiner (current) use of insulin Status: Chronic Assessment and Plan: On Accu-Cheks and sliding-scale insulin. 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 About 5 years ago or so the patient was seeing a golf course keeper in [facility]. 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 She has not really seen a golf course keeper since then. She moved in to town a while back and things were stable with her kidneys. Lately however she has become more short of breath and swollen over the last couple of weeks. She said that gradually got worse. Swelling was better she raised her legs were stiff she was on her feet and the shortness of breath is worse with exertion better with rest worse with lying flat. Patient also has had some pain in her low back and in her neck. Because of all these issues she came into the emergency room last evening. She was found to have an elevated creatinine which is at about the same level it is has been in the last few months. Her chest x-ray showed fluid and she was swollen so she was given some diuretics overnight. She made a little urine. Her breathing is better and her swelling is better she says. Patient denies stroke or heart attack. She does not smoke or drink. Review of Systems Constitutional: Constitutional: Reports no additional constitutional complaints Eyes: Eyes: Reports no additional eye complaints ENT: Reports system reviewed and no additional complaints, except as documented Cardiovascular: Cardiovascular: Reports no additional cardiovasc
--- NOTE | 2021-07-14 09:58 | ECHO_ITS ---
Patient Info Name: Katerina Rees Age: 75 years : 1945 Gender: Female Ht: 58 in Wt: 190 lbs BSA: 1.93 m2 HR: 52 bpm BP: 117 / 48 mmHg Technical Quality: Good Exam Date: 07/14/2021 12:52 PM Exam Location: [facility] Pulmonary Patient Status: Inpatient Admit Date: 07/14/2021 Staff Ordering Physician: Leif Baker MD Pigment Processor: Heather Kulkarni RDCS Attending Provider: Kelly Beyer PA-C Referring Physician: Olivia BARTLETT; Exam Type: CA echo doppler color flow Study Info Indications - VOLUME OVERLOAD Complete two-dimensional, color flow and Doppler transthoracic echocardiogram is performed. Summary 1. Complete two-dimensional, color flow and Doppler transthoracic echocardiogram is performed. 2. Left ventricular chamber dimension is normal. 3. Mid to distal inferior wall and inferoapex are hypokinetic. 4. Left ventricular systolic function is normal, estimated at 55-60%. 5. There is mildly increased left ventricular wall thickness. 6. The left ventricular diastolic function is abnormal. 7. E/e' 24 is significantly elevated. 8. Global longitudinal strain is abnormal at -12.7%. 9. Left atrial chamber dimension is moderately enlarged. 10. There is mild aortic valve sclerosis. 11. The mitral valve has moderately calcified annulus. 12. There is mild tricuspid valve regurgitation. 13. Mild pulmonary hypertension, estimated pulmonary arterial systolic pressure is 41 mmHg. Left Ventricle E/e' 24 is significantly elevated. Global longitudinal strain is abnormal at -12.7%. Mid to distal inferior wall and inferoapex are hypokinetic. Left ventricular chamber dimension is normal. Left ventricular systolic function is normal, estimated at 55-60%. There is mildly increased left ventricular wall thickness. The left ventricular diastolic function is abnormal. Right Ventricle Right ventricular systolic function is normal and with normal TAPSE 1.9 cm.. Right ventricular chamber dimension is normal. Left Atria Left atrial chamber dimension is moderately enlarged. Right Atria Right atrial chamber dimension is normal. Aortic Valve The aortic valve is trileaflet. There is mild aortic valve sclerosis. There is no aortic valve stenosis. There is no aortic valve regurgitation. Pulmonic Valve There is no pulmonic regurgitation. Mitral Valve The mitral valve has moderately calcified annulus. There is no mitral valve stenosis. There is no mitral valve regurgitation. Tricuspid Valve There is mild tricuspid valve regurgitation. Mild pulmonary hypertension, estimated pulmonary arterial systolic pressure is 41 mmHg. Pericardium/Pleural There is no pericardial effusion. Inferior Vena Cava Normal inferior vena cava with >50% collapse upon inspiration consistent with normal right atrial pressure, 5 mmHg. Aorta The aortic root size at the sinus of Valsalva is normal. Left Ventricular Outflow Tract Name Value Normal LVOT 2D LVOT Diameter 2.0 cm LVOT Doppler LVOT Peak Gradient 5 mmHg LVOT Mean Gradient 3 mmHg LVOT VTI
--- NOTE | 2021-07-14 10:16 | PC.NURSE ---
Pt to MRI per stretcher
[2021-07-14 10:18] LABS: Iron 30 ug/dL (37-170)
[2021-07-14 10:22] LABS: Creatine Kinase 113 U/L (30-135)
[2021-07-14 10:28] LABS: Percent Iron Saturation 11 % (20-50)
[2021-07-14 10:47] LABS: Parathyroid Intact 126.9 pg/mL (7.5-53.5)
--- NOTE | 2021-07-14 11:17 | PCOTNOTE ---
Attempted OT Evaluation, patient is currently off the unit for MRI. will follow and attempt at later time.
[2021-07-14 11:48] LABS: Glucose Point of Care 65 mg/dl (65-105)
[2021-07-14] MEDS: GLUCOSE ORAL GEL 15 GM OF GLUCSE IN 37.5 GM TUBE PO (11:50)
[2021-07-14 12:27] LABS: Glucose Point of Care 99 mg/dl (65-105)
--- NOTE | 2021-07-14 12:56 | PM.IMPN ---
Progress Note: A&P Assessment and Plan (1) Fluid overload, unspecified: Code(s): E87.70 - Fluid overload, unspecified Status: Acute Assessment and Plan: Patient presented with increased leg swelling and shortness of breath and showing symptoms of [place] [address]. Could be secondary to end-stage renal disease and needing to change her diuretic to help with diuresis and or congestive heart failure will obtain echocardiogram, on prior CT abdomen it showed normal appearing liver. We are working on diuresis with IV Bumex 1 mg b.i.d. Due to blood pressure being slightly low this afternoon at 98 systolic I will order IV albumin 25% to be given 30 minutes prior to diuretics to help with diuresis and blood pressure control I have also made adjustments to her blood pressure medications, discontinuing amlodipine and hydralazine as well as lowering her Coreg to 12.5 mg b.i.d. Appreciate Nephrology's input and recommendations Will continue monitoring intake and output. Will continue monitoring renal function and electrolytes (2) ESRD (end stage renal disease): Code(s): N18.6 - End stage renal disease Status: Acute Assessment and Plan: Dr. Baker evaluated the patient and she still does NOT want Dialysis. Dr. Baker does not believe she is Uremic at this time. Renal US ordered and pending Further work up per Nephrology The patient understands that without dialysis she will from renal failure and complications. She still does not want dialysis. Will continue monitoring renal function and electrolytes with diuresis. (3) Impaired functional mobility, balance, gait, and endurance: Code(s): Z74.09 - Other reduced mobility Status: Acute Assessment and Plan: She has been at SNF and working with PT/OT there but continues to have generalized weakness. Based on her weakness and sensation changes it appears to have had a Thoracic or Cervical injury which could have occurred 2 years ago and become progressively worse since January 2021 At this time, we will further work up with MRI Cervical and Thoracic once her acute issue is resolved. Continue with PT OT evaluation. Continue monitoring (4) Positional vertigo: Status: Chronic Assessment and Plan: PRN Meclizine (5) Hypertension: Qualifiers: Hypertension type: unspecified Qualified Code(s): I10 - Essential (primary) hypertension Code(s): I10 - Essential (primary) hypertension Status: Acute Assessment and Plan: Patient's blood pressure is soft. I discontinued Hydralazine and Amlodipine. I decreased Coreg from 25 mg to 12.5mg to improve heart rate and stablize blood pressure. Continue monitoring BP. (6) Diabetes mellitus type 2, insulin dependent: Code(s): E11.9 - Type 2 diabetes mellitus without complications; Z79.4 - patient portal representative (current) use of insulin Status: Chronic Assessment and Plan: Patient has been Hypoglycemic which could be secondary to her lantus lingering in her body due to her ESRD vs underlying infection. The patient has not been eating very well she is having difficulty swallowing. Will hold home insulin due to hypoglycemia and She is on D10 at rate 50 cc/hr. Continue monitoring Accu-Cheks every 6 hours with sliding scale insulin. Hypoglycemic protocol in place. (7) Dysphasia: Code(s): R47.02 - Dysphasia Status: Acute Assessment and Plan: Having dysphasia for the last few days, coughing with eating and drinking. Speech evaluated at bedside and did not see any abnormalities Throughout today she has had some coughing w
--- NOTE | 2021-07-14 13:01 | PCOTNOTE ---
Attempted OT evaluation, patient is currently having a echo completed, will follow and attempt at later time
[2021-07-14 13:33] LABS: Creatinine Urine 74.2 mg/dL; Total Protein Urine Random 36 mg/dL; Ur Ttl Prot Creatinine Ratio 0.49 mg/mg (0-0.20)
[2021-07-14 13:35] LABS: Hematocrit 27.4 % (37.0-47.0); Hemoglobin 8.3 g/dL (12.0-15.0)
[2021-07-14 13:36] LABS: Sodium Urine Random 38 meq/L
--- NOTE | 2021-07-14 13:44 | PCPTNOTE ---
attempted PT evaluation, pt just leaving for ultrasound of kidneys. unable to complete PT eval
--- NOTE | 2021-07-14 13:52 | PCOTNOTE ---
Attempted OT evaluation, patient is currently off the unit for testing, will follow and attempt at later time.
--- NOTE | 2021-07-14 13:56 | PC.NURSE ---
Patient to US per stretcher.
[2021-07-14] MEDS: CYCLOBENZAPRINE HCL 5 MG TABLET PO ×2 (14:30→17:10)
[2021-07-14 15:52] LABS: Basophils Percent Auto 0.4 % (0.2-1.2); Eosinophils Absolute Auto 0.1 K/mm3 (0-0.3); Eosinophils Percent Auto 1.4 % (0-4.4); Hematocrit 28.7 % (37.0-47.0); Hemoglobin 8.6 g/dL (12.0-15.0); Immature Granulocyte Absolute 0.02 K/mm3 (0.00-0.031); Immature Granulocyte Percent A 0.2 % (0-0.5); Lymphocytes Absolute Auto 0.77 K/mm3 (0.9-3.2); Lymphocytes Percent Auto 9.5 % (18.3-44.2); Mean Corpuscular Hemoglobin 26.5 pg (26-34); Mean Corpuscular Volume 88.3 fl (80-100); Mean Platelet Volume 9.2 fl (7.4-10.4); Monocytes Absolute Auto 0.3 K/mm3 (0.1-0.6); Monocytes Percent Auto 3.3 % (2.6-8.5); Neutrophils Absolute Auto 6.9 K/mm3 (1.3-6.7); Neutrophils Percent Auto 85.2 % (45.5-73.1); Platelet Count Result 207 k/mm3 (150-375); Red Blood Count 3.25 M/mm3 (4.2-5.4); Red Cell Distribution Width 16.9 % (11.5-14.5); White Blood Count 8.1 K/mm3 (4.5-10.0)
[2021-07-14 16:10] LABS: Alanine Aminotransferase 18 U/L (4-35); Albumin Level 3.2 g/dL (3.5-5.1); Alkaline Phosphatase 71 U/L (38-126); Anion Gap 11 mmol/L (8-16); Aspartate Amino Transferase 23 U/L (14-36); Bilirubin,Total 0.3 mg/dL (0.2-1.3); Blood Urea Nitrogen 64 mg/dL (7-17); Carbon Dioxide 21 mmol/L (22-30); Chloride 102 mmol/L (98-107); Estimated Glomerular Filt Rate 12; Glucose 120 mg/dL (65-110); Lactic Acid Reflex 0.7 mmol/L (0.7-2.1); Potassium 4.3 mmol/L (3.4-5.0); Sodium 134 mmol/L (137-145)
[2021-07-14 16:28] LABS: Glucose Point of Care 115 mg/dl (65-105)
[2021-07-14] MEDS: ALBUMIN HUMAN 25% 25 GM/100 ML 100 ML IVPB (17:04)
[2021-07-14] MEDS: ACETAMINOPHEN 325 MG TABLET 650 MG PO (20:44)
[2021-07-14] MEDS: DOCUSATE SODIUM 100 MG CAPSULE PO (20:45)
[2021-07-14] MEDS: GABAPENTIN 100 MG CAPSULE 200 MG PO (20:47)
[2021-07-14] MEDS: carvediloL 12.5 MG TABLET PO (20:48)
[2021-07-14 21:05] LABS: Add Urine Microscopic? YES; Appearance Urine Clear (Clear); Bacteria Urine Trace /hpf; Bilirubin Urine Negative (Negative); Color Urine Yellow (Yellow); Glucose Urine UA Negative (Negative); Ketones Urine Negative (Negative); Leukocyte Esterase Ur 1+ LEU/UL (Negative); Mucus Urine Rare /lpf; Nitrate Urine Negative (Negative); Protein Urine 1+ mg/dL (Negative); RBC Urine 0-2 /hpf (0-2); Specific Grav Ur 1.011 (1.001-1.035); Squamous Epithelial Cell Urine Rare /hpf (Few); Urobilinogen Urine Negative mg/dL (<2.0)
[2021-07-14 21:32] LABS: Blood Urine Negative (Negative)
[2021-07-14] MEDS: metroNIDAZOLE 500 MG/ISO 100ML 500 MG/100 ML BAG 100 MG IVPB (21:51)
[2021-07-15] VITALS: PULSE 77; PULSE 94; RESP 18
[2021-07-15] MEDS: ALBUTEROL SULFATE NEB 2.5 MG/3 ML INH INHALATION (00:01)
[2021-07-15 00:08] VITALS: PULSE 62; PULSE 96; RESP 18; O2SAT 96
[2021-07-15 00:22] LABS: Glucose Point of Care 103 mg/dl (65-105)
[2021-07-15] MEDS: metroNIDAZOLE 500 MG/ISO 100ML 500 MG/100 ML BAG 100 MG IVPB ×2 (00:43→06:16)
[2021-07-15 02:00] VITALS: BP 137/51; PULSE 77; RESP 18; TEMP 36.8; O2SAT 98
[2021-07-15 02:01] VITALS: PULSE 94; O2SAT 96
[2021-07-15 04:00] VITALS: PULSE 81
[2021-07-15 05:29] LABS: Basophils Percent Auto 0.2 % (0.2-1.2); Eosinophils Absolute Auto 0.1 K/mm3 (0-0.3); Eosinophils Percent Auto 1.6 % (0-4.4); Hematocrit 27.8 % (37.0-47.0); Hemoglobin 8.2 g/dL (12.0-15.0); Immature Granulocyte Absolute 0.02 K/mm3 (0.00-0.031); Immature Granulocyte Percent A 0.2 % (0-0.5); Lymphocytes Absolute Auto 1.04 K/mm3 (0.9-3.2); Lymphocytes Percent Auto 12.2 % (18.3-44.2); Mean Corpuscular HGB Conc 29.5 g/dl (32-36); Mean Corpuscular Hemoglobin 26.2 pg (26-34); Mean Corpuscular Volume 88.8 fl (80-100); Mean Platelet Volume 9.5 fl (7.4-10.4); Monocytes Absolute Auto 0.5 K/mm3 (0.1-0.6); Monocytes Percent Auto 5.5 % (2.6-8.5); Neutrophils Absolute Auto 6.8 K/mm3 (1.3-6.7); Neutrophils Percent Auto 80.3 % (45.5-73.1); Platelet Count Result 212 k/mm3 (150-375); Red Blood Count 3.13 M/mm3 (4.2-5.4); White Blood Count 8.5 K/mm3 (4.5-10.0)
[2021-07-15 05:50] LABS: Albumin Level 3.5 g/dL (3.5-5.1); Anion Gap 10 mmol/L (8-16); Blood Urea Nitrogen 61 mg/dL (7-17); Calcium 9.1 mg/dL (8.4-10.2); Carbon Dioxide 23 mmol/L (22-30); Chloride 102 mmol/L (98-107); Estimated Glomerular Filt Rate 11; Glucose 101 mg/dL (65-110); Magnesium 2.2 mg/dL (1.6-2.3); Phosphorus 5.4 mg/dL (2.5-4.5); Potassium 4.3 mmol/L (3.4-5.0); Sodium 135 mmol/L (137-145)
[2021-07-15 05:54] VITALS: BP 135/75; PULSE 84; RESP 16; TEMP 37.7; O2SAT 93
[2021-07-15 06:14] LABS: Glucose Point of Care 99 mg/dl (65-105)
[2021-07-15 06:47] LABS: Folic Acid > 20.0 ng/mL (2.76->20); Vitamin B12 > 1000.0 pg/mL (239-931)
[2021-07-15 07:25] LABS: Platelet Estimate Adequate (Adequate)
[2021-07-15 07:26] LABS: Hypochromasia 2+ (NORMAL)
--- NOTE | 2021-07-15 07:47 | PM.DDS ---
Discharge Summary Date and Time Date of : 07/15/21
[2021-07-15 07:53] LABS: Glucose Point of Care 173 mg/dl (65-105)
--- NOTE | 2021-07-15 13:50 | PM.DDS ---
Discharge Summary Date and Time Date of : 07/15/21 Time of : 07:34 Provider Pronounced By: Remedios Coffman RN Probable Cause of Probable Cause of : AV Jose Luis Dysfunction, ESRD Summary Hospital Course: The patient is a 75 year old woman with a history of CKD stage 5 refusing to go on dialysis for 4 years, COPD, chronic respiratory failure on 3L via NC, DM, HTN, who presented to the ER with symptoms of SOB and leg swelling for the last few weeks. Initial vitals showed BP 105/47, HR 59, RR 15, Temp 97.5, O2 99% on 3L. Initial labs showed normal WBC 6.8, normocytic anemia Hgb 8.8/29.7, elevated neutrophil count 76%, Cr 3.90/BUN 68, GFR 11, Hypoglycemia 60. HgbA1c 5.4%. Elevated BNP 28,000. CXR showed Moderate basilar opacity combination of layering pleural effusions and edema and/or pneumonia. Cardiomegaly, pulmonary vascular congestion. CT head showed No acute intracranial findings. Chronic age related findings. She was admitted into the hospital for fluid overload and further work up and evaluation. Recommended to be started on IV Bumex by Nephrology. During her hospitalization she was responding to diuresis, but her BP was slightly low. I adjusted her home HTN medications and started IV Albumin to help with her pressures prior to diuresis. Further work up included Venous Dopplers showing no DVT. Brain MRI due to worsening numbness/weakness to bilateral lower extremities up to her epigastric area which showed Mild nonspecific cerebral white matter disease, which likely represents chronic small vessel ischemic disease. Renal US showed Echogenic renal disease, medical renal disease. Moderate renal atrophy. 07/14/21 afternoon she was found to have a rectal temperature of 93.6 degrees, BP 116/50, HR 55, Normal RR rate and O2 on chronic 3L via NC. Further evaluation showed some swelling to her neck without any erythema, warmth, tenderness to palpation but concerning the swelling could be a cause of infection vs dysphasia cause over the last few days. Also, since coughing with drinking aspiration is also on the top of the risk of infection. STAT Labs rechecked showing WBC still within normal range, elevated neutrophils at 85%, slight hyponatremia at 134, Cr 3.8, BUN 64, Lactic normal at 0.7. LFTs normal. We obtained blood cultures and started IV Ceftriaxone and Flagyl for aspiration pneumonia and ordered STAT imaging with CT Neck soft tissue/Chest/Abd/Pelvis which showed Moderate-sized bilateral pleural effusions. Mild pulmonary edema. Mild mediastinal lymphadenopathy, likely reactive. T11 vertebral body fracture, new from 05/20/2021, likely subacute. 14 mm cystic lesion of the pancreas. The differential diagnosis includes pseudocyst, intraductal papillary mucinous neoplasm (IPMN), mucinous cystic neoplasm (MCN), serous cystadenoma, and neuroendocrine tumor. Multinodular goiter. Consider thyroid ultrasound for risk stratification. 6 mm pulmonary nodule, probably benign. Throughout the night, the patients temperature improved and this morning she was slightly febrile to 99.9F. BP at 0554 135/75, HR 84, RR 16, O2 93% on baseline 3L. The patients glucose this morning was 99. Around 0730 the nurse noticed on her Tele her HR in the 20's and rushed to her room. At that time, she was taking agonal breaths and difficult to arouse. Within a few minutes the patient began to larisa down and went into asystole. She had no heart sounds or breaths. The patients family were informed and came to the hospital and I explained what transpired and gave my condolences. Additional Data Confirmation of as documented by pronouncing clinician: Pupillary Reflex, Palpable Pulses, Response to Stimuli, Heart Tones and Breath Sounds Name of Provider Notified: Dr. Mena Beyer Time Provider Notified: 07:35 Was code activated?: No (DNR) Provider Requests Autopsy: No Family Requests Autopsy: No Front Desk Specialist Notified: Yes Date [facility] Notified of : 07/15/21
== END 2021-07-15 07:34 | disposition expired | DRG 291 ==
LOC: ANHED 18:21 → ANH2MED 18:37
PROVIDERS: Internal Medicine Nephrology; Nurse Practitioner; Physician Assistant; Admitting Provider Family Medicine; Emergency Provider Family Medicine; PCP Internal Medicine; Visit Provider Internal Medicine
DX: I13.2 Hypertensive heart and chronic kidney disease with heart failure and with stage 5 chronic kidney disease, or end stage renal disease (principal); N18.6 End stage renal disease; J69.0 Pneumonitis due to inhalation of food and vomit; S22.089A Unspecified fracture of T11-T12 vertebra, initial encounter for closed fracture; J96.10 Chronic respiratory failure, unspecified whether with hypoxia or hypercapnia; I45.89 Other specified conduction disorders; I50.9 Heart failure, unspecified; I46.9 Cardiac arrest, cause unspecified; E11.22 Type 2 diabetes mellitus with diabetic chronic kidney disease; Z66 Do not resuscitate; T68.XXXA Hypothermia, initial encounter; E11.649 Type 2 diabetes mellitus with hypoglycemia without coma; E11.40 Type 2 diabetes mellitus with diabetic neuropathy, unspecified; G47.33 Obstructive sleep apnea (adult) (pediatric); R47.02 Dysphasia; R26.89 Other abnormalities of gait and mobility; R53.1 Weakness; Z74.09 Other reduced mobility; E87.70 Fluid overload, unspecified; K21.9 Gastro-esophageal reflux disease without esophagitis; M47.816 Spondylosis without myelopathy or radiculopathy, lumbar region; F32.9 Major depressive disorder, single episode, unspecified; M19.90 Unspecified osteoarthritis, unspecified site; G89.29 Other chronic pain; H81.10 Benign paroxysmal vertigo, unspecified ear; Z79.4 Long term (current) use of insulin; Z79.899 Other long term (current) drug therapy; Z87.891 Personal history of nicotine dependence; Z98.49 Cataract extraction status, unspecified eye; Z99.89 Dependence on other enabling machines and devices; Z99.81 Dependence on supplemental oxygen
CPT/HCPCS: 36415; 70450; 70490; 70551; 71045; 71250; 74018; 74176; 76775; 80053; 80069; 81001; 82533; 82550; 82570; 82607; 82728; 82746; 82948; 83036; 83540; 83550; 83605; 83690; 83735; 83880; 83970; 84156; 84300; 84443; 85014; 85018; 85025; 87040; 87086; 92610; 93005; 93306; 93970; 94640; 94660; 96361; 96365; 96366; 96368; 96375; 96376; 99285; A9270; G0378; J0131; J0696; J3010; J7040; P9047